=== PATIENT | female | born 1945 | race Two or more races ===

== ENCOUNTER 2024-07-04 07:22 | Emergency (ER) | payer OTHER ==
[~2024-07-04] VITALS: Ht 172.7 cm; Wt 68.9 kg
[2024-07-04] MEDS ORDERED: ROSUVASTATIN CAL5 MG PO (07:48)
[2024-07-04] MEDS ORDERED: LOSARTAN POTAS100 MG PO (07:48)
[2024-07-04] MEDS ORDERED: ADULT LOW DOSE81 M1 PO (07:49)
[2024-07-04] MEDS ORDERED: GUAIFENESIN/DEXTROMETHORPHAN 100MG/10ML BLIST.PACK PO ONE ×2 (09:23→09:30)
[2024-07-04 10:25] LABS: BASO % 0.4 % (0.1-1.2); EOS # 0.02 (0.04-0.54); EOS % 0.3 % (0.7-7.0); HEMATOCRIT 38.7 % (34.1-44.9); HEMOGLOBIN 12.6 g/dL (11.2-15.7); LYMPH % 14.2 % (19.3-53.1); MEAN CORPUSCULAR HEMOGLOBIN 30.7 pg (25.6-32.2); MONO # 0.65 (0.24-0.82); MONO % 8.4 % (4.7-12.5); NEUT # 5.86 (1.56-6.13); NEUT % 75.9 % (34.0-71.1); PLATELET COUNT 267 K/uL (163-369); RED CELL DISTRIBUTION WIDTH 11.8 % (11.6-14.4)
[2024-07-04 10:46] LABS: COVID-19 AG NEGATIVE (NEGATIVE)
[2024-07-04 10:47] LABS: INFLUENZA A AG NEGATIVE (NEGATIVE)
[2024-07-04] MEDS ORDERED: GILTUSS HONEY118 ML PO (12:06)
[2024-07-04] MEDS ORDERED: ACETAMINOPHEN500 M1 PO (12:06)
[2024-07-04] MEDS ORDERED: ZITHROMAX TRI-500 MG PO (12:06)
== END 2024-07-04 12:32 | disposition home or self-care (01) ==
LOC: ER 07:22
PROVIDERS: Preventive Medicine Public Health & General Preventive Medicine
DX: J06.9 Acute upper respiratory infection, unspecified (principal); J00 Acute nasopharyngitis [common cold]; Z20.822 Contact with and (suspected) exposure to COVID-19; I10 Essential (primary) hypertension